=== PATIENT | female | born 1985 | race African-American/Black ===

== ENCOUNTER 2017-02-25 09:03 | Outpatient (CLI) | payer OTHER ==
--- NOTE | 2017-02-25 10:19 | Fluoroscopy Report ---
UGI INDICATION: Possible GE reflux. Coughing. COMPARISON: None similar. FINDINGS: Upper GI exam performed. Patient swallowed thick and thin barium without any difficulty and tolerated effervescent granules well. Tool Analyst radiograph demonstrates nonobstructive bowel gas pattern. Colonic stool/possible constipation. Esophagus is normal in course and caliber. Normal peristalsis and mucosal pattern, to the extent assessed. No demonstrable hiatal hernia or gastroesophageal reflux. Normal gastric contours without evidence of peptic ulcer disease. Normal duodenal bulb and appearance of the C-loop as well. CONCLUSION: Normal upper GI exam, as described. Thank you for the opportunity to participate in this patient's care.
== END 2017-02-25 09:04 | disposition home or self-care (01) ==
LOC: FLUORO 09:03
PROVIDERS: ATTEND Internal Medicine
DX: R05 Cough (principal)
CPT/HCPCS: 74247